=== PATIENT | female | born 1975 | race Two or more races ===

== ENCOUNTER 2019-03-03 17:56 | Emergency (ER) | payer OTHER ==
[~2019-03-03] VITALS: Ht 162.6 cm; Wt 57.3 kg
[2019-03-03 17:59] VITALS: BP 140/100
--- NOTE | 2019-03-03 18:02 | NUR ---
patient BIB from home, suicidal, found with belt around her neck, on room air, breathing evenly and unlabored. connected to the monitor and pulse ox. kept comfortable, will continue to monitor accordingly, son in law at bedside, sitter for constant monitoring.
--- NOTE | 2019-03-03 18:05 | NUR ---
URINE SPECIMEN COLLECTED AND SENT TO LAB.
[2019-03-03 18:18] LABS: BASOPHILS # (AUTO) 0.1 /CMM (0.0-0.2); BASOPHILS % (AUTO) 0.8 % (0.0-2.0); EOSINOPHILS % (AUTO) 2.8 % (0.0-6.0); HEMATOCRIT 37 % (33-45); HEMOGLOBIN 12.5 g/dL (11.5-14.8); LYMPHOCYTES # (AUTO) 2.9 /CMM (0.8-4.8); LYMPHOCYTES % (AUTO) 38.7 % (20.0-44.0); MEAN CORPUSCULAR HGB CONC 34 g/dl (31.0-36.0); MEAN CORPUSCULAR VOLUME 92 fL (82-100); MONOCYTES # (AUTO) 0.7 /CMM (0.1-1.30); MONOCYTES % (AUTO) 8.8 % (2.0-12.0); NEUTROPHILS # (AUTO) 3.6 /CMM (1.8-8.9); NEUTROPHILS % (AUTO) 48.9 % (43.0-81.0); PLATELET COUNT (AUTO) 347 /CMM (150-450); RED BLOOD CELL COUNT(AUTO) 4.06 MIL/uL (4.0-5.2); WHITE BLOOD COUNT (AUTO) 7.5 K/uL (4.3-11.0)
[2019-03-03 18:20] LABS: APPEARANCE,URINE Clear (CLEAR); BILIRUBIN,URINE Negative (NEGATIVE); BLOOD, URINE Trace-intact Ery/uL (NEGATIVE); COLOR,URINE Yellow (YELLOW); KETONES,URINE Negative (NEGATIVE); LEUKOCYTE ESTERASE ,URINE Negative (NEGATIVE); NITRITE, URINE Negative (NEGATIVE); PROTEIN,URINE Negative (NEGATIVE); UGLUCOSE Negative (NEGATIVE); UROBILINOGEN,URINE 0.2 EU/dL (0.2)
[2019-03-03 18:36] LABS: CALCIUM, SERUM 8.9 mg/dL (8.5-10.1); CARBON DIOXIDE 27 mmol/L (21-32); CHLORIDE 102 mmol/L (98-107); CREATININE 0.6 mg/dL (0.6-1.3); GLUCOSE 100 mg/dL (74-106); POTASSIUM 3.9 mmol/L (3.5-5.1); SODIUM SERUM 137 mmol/L (136-145); UREA NITROGEN, BLOOD 14 mg/dL (7-18)
[2019-03-03 18:42] LABS: ALANINE AMINOTRANSFERASE 135 U/L (12-78); ALBUMIN 3.5 g/dL (3.4-5.0); ALKALINE PHOSPHATASE 53 U/L (46-116); ASPARTATE AMINOTRANSFERASE 66 U/L (15-37); BILIRUBIN,TOTAL 0.1 mg/dL (0.2-1.0); SALICYLATE 0.8 mg/dL (2.8-20.0); TOTAL PROTEIN, SERUM 7.2 g/dL (6.4-8.2)
[2019-03-03 18:43] LABS: ACETAMINOPHEN < 5 ug/ml (10-30)
[2019-03-03 18:59] LABS: ALCOHOL, BLOOD < 3 mg/dL (0-0)
[2019-03-03 19:03] LABS: BACTERIA,URINE Few /HPF (None Seen); RBC,URINE 2-3/HPF /HPF (0-2); SQUAMOUS EPITHELIAL CELL,UR Few /HPF (None Seen); URINE AMORPHOUS URATE Few /HPF (None Seen); WBC,URINE 0-2 /HPF (0-3)
--- NOTE | 2019-03-03 19:20 | NUR ---
[facility] WAITING WELL PULLER HEAD BACK.
--- NOTE | 2019-03-03 19:24 | NUR ---
MD TO IN PROCESS.
--- NOTE | 2019-03-03 20:33 | NUR ---
CLINICAL INFORMATION + HOLD FAXED OVER TO [place] [facility]. AWAITING CALL BACK FOR TRANSFER INFORMATION
--- NOTE | 2019-03-03 21:27 | NUR ---
[facility] [employer]: CHANG [phone] FAX: [phone]
--- NOTE | 2019-03-03 21:43 | NUR ---
[facility], [address], [address], RN [phone], AMBULANCE ETA [phone]
== END 2019-03-03 23:17 | disposition short-term general hospital (02) ==
LOC: ER 17:58
DX: R45.851 Suicidal ideations (principal); R74.0 Nonspecific elevation of levels of transaminase and lactic acid dehydrogenase [LDH]; F32.9 Major depressive disorder, single episode, unspecified; F20.9 Schizophrenia, unspecified
CPT/HCPCS: 36415; 80048; 80076; 80305; 80307; 80329; 81001; 84702; 85025; 99285; G0480; 81000-TC